=== PATIENT | female | born 1965 | race Caucasian/White ===

== ENCOUNTER 2019-06-01 12:08 | Day surgery (SDC) | payer OTHER ==
[2019-06-01] MEDS ORDERED: PROPOFOL 20 ML (14:43)
[2019-06-01] MEDS ORDERED: LIDOCAINE 2% (SDV) 5 ML INJ (14:43)
== END 2019-06-01 16:35 | disposition home or self-care (01) ==
LOC: GIL 12:08
DX: Z12.11 Encounter for screening for malignant neoplasm of colon (principal); K64.8 Other hemorrhoids; K57.30 Diverticulosis of large intestine without perforation or abscess without bleeding
CPT/HCPCS: 45378